=== PATIENT | male | born 1990 | race Native Hawaiian/Other Pacific Islander ===

== ENCOUNTER 2017-03-08 17:15 | Emergency (ER) | payer MEDICAID ==
[2017-03-08] MEDS ORDERED: ATIVAN IM PRN (17:36)
[2017-03-08] MEDS ORDERED: HALDOL IM PRN (17:36)
[2017-03-08] MEDS ORDERED: BENADRYL IM PRN (17:36)
[2017-03-08 18:09] LABS: Basophils # (Auto) 0.1 K/mm3 (0.0-0.1); Eosinophils % (Auto) 0.2 % (0.0-4.3); Hematocrit 45.2 % (35.5-45.6); Hemoglobin 14.9 gm/dl (11.8-15.2); Lymphocytes # (Auto) 1.7 K/mm3 (1.2-5.4); Lymphocytes % (Auto) 20.1 % (13.4-35.0); Mean Corpuscular HGB Conc 33 % (32-34); Mean Corpuscular Hemoglobin 28 pg (28-32); Mean Corpuscular Volume 83 fl (84-94); Monocytes % (Auto) 11.8 % (0.0-7.3); Platelet Count 203 K/mm3 (140-440); Red Blood Count 5.44 M/mm3 (3.65-5.03); Red Cell Distribution Width 15.1 % (13.2-15.2)
--- NOTE | 2017-03-08 18:12 | Emergency Department Report ---
HPI - General Time Seen by Provider: 03/08/17 17:36 - HPI HPI: Room 17 The patient is a 26-year-old male presenting with a chief complaint of aggressive behavior. The patient has a history of schizophrenia, Tourette syndrome and OCD. The patient's father states he sporadically takes his medication. The father states over the past 3-4 months he's had progressively worsening behavior which includes things such as punching holes in the reynoso and breaking glass. The patient's father states the patient spent 3 hours in the shower making screaming noises. The patient denies complaints and only states he feels sleepy Location: Mental state Duration: Worsening Over 3-4 months Quality: Aggressive, destructive Severity: Moderate Modifying factors: [see above] Context: [see above] Mode of transportation: [not driving] ED Past Medical Hx - Past Medical History Hx Psychiatric Treatment: Yes Additional medical history: Tourette's syndrome, schizophrenia, OCD - Surgical History Past Surgical History?: No - Family History Family history: no significant - Social History Smoking Status: Never Smoker Substance Use Type: None ED Review of Systems ROS: Stated complaint: PSYCH EVAL Other details as noted in HPI Comment: Unobtainable due to pts medical conditions Physical Exam - Physical Exam Physical Exam: GENERAL: The patient is well-developed well-nourished male sitting on stretcher eating food. To be in acute distress. [] HEENT: Normocephalic. Atraumatic. Extraocular motions are intact. Patient has moist mucous membranes. NECK: Supple. Trachea midline CHEST/LUNGS: Clear to auscultation. There is no respiratory distress noted. HEART/CARDIOVASCULAR: Regular. There is no tachycardia. There is no gallop rub or murmur. ABDOMEN: Abdomen is soft, nontender. Patient has normal bowel sounds. There is no abdominal distention. SKIN: There is no rash. There is no edema. There is no diaphoresis. NEURO: The patient is awake and alert. The patient is cooperative. The patient has normal speech and gait. MUSCULOSKELETAL:There is no evidence of acute injury. ED Medical Decision Making - Lab Data Result diagrams: 03/08/17 17:57 12 17:57 Laboratory Tests 03/08/17 03/08/17 12 17:57 17:57 17:57 WBC 8.3 RBC 5.44 H Hgb 14.9 Hct 45.2 MCV 83 L MCH 28 MCHC 33 RDW 15.1 Plt Count 203 Lymph % (Auto) 20.1 [place] % (Auto) 11.8 H Eos % (Auto) 0.2 Baso % (Auto) 1.0 Lymph # 1.7 [place] # 1.0 H Eos # 0.0 Baso # 0.1 Seg Neutrophils % 66.9 Seg Neutrophils # 5.6 Sodium 141 Potassium 3.5 L Chloride 98.9 Carbon Dioxide 24 Anion Gap 22 BUN 17 Creatinine 0.6 L Estimated GFR > 60 BUN/Creatinine Ratio 28 Glucose 115 H Calcium 9.8 Plasma/Serum Alcohol < 0.01 - Differential Diagnosis schizophrenia Critical care attestation.: If time is entered above; I have spent that time in minutes in the direct care of this critically ill patient, excluding procedure time. ED Disposition Clinical Impression: Schizophrenia Disposition: DC/TX-65 PSY HOSP/PSY UNIT Is pt being admited?: No Does the pt Need Aspirin: No Condition: Fair Time of Disposition: 18:12 (awaiting acceptance)
[2017-03-08 18:25] LABS: BUN/Creatinine Ratio 28; Blood Urea Nitrogen 17 mg/dL (9-20); Calcium 9.8 mg/dL (8.4-10.2); Hemolysis Index 12
[2017-03-09 08:38] LABS: Bacteria,Urine 1+ /HPF (Negative); Bilirubin,Urine NEG (Negative); Blood,Urine NEG (Negative); Color,Urine Yellow (Yellow); Mucus,Urine 2+ /HPF; Nitrite,Urine NEG (Negative); Protein,Urine <15 mg/dL mg/dL (Negative); Urobilinogen,Urine < 2.0 mg/dL (<2.0)
[2017-03-09 11:37] LABS: Amphetamine Screen,Urine PRESUMPTIVE NEGATIVE; Benzodiazepines Screen,Urine PRESUMPTIVE NEGATIVE; Cannabinoid Screen,Urine PRESUMPTIVE NEGATIVE; Cocaine Screen,Urine PRESUMPTIVE NEGATIVE; Methadone Screen,Urine PRESUMPTIVE NEGATIVE; Opiate Screen,Urine PRESUMPTIVE NEGATIVE
[2017-03-09] MEDS ORDERED: ATIVAN PO PRN (14:48)
[2017-03-09] MEDS ORDERED: ATIVAN ONE (14:51)
--- NOTE | 2017-03-09 16:37 | Consultation ---
History of Present Illness - Reason for Consult Consult date: 03/09/17 Reason for consult: Mental Health Evaluation Requesting physician: CALLI CONNELL - Chief Complaint Chief complaint: "Nothing is wrong with me" - History of Present Psychiatric Illness 26 y.o. male presenting to [facility] for bizarre behavior. Today the patient is calm and cooperative, but disorganized during the assessment. He has a tangential thought process. Patient was looking around during the interview, possible responding to some type of stimuli. He is adamant that he is okay. Per collateral information from his father Mr Reveles, patient has schizophrenia and been hospitalized. He stated that that patient thinks someone or something is always out to get him. He stated that his son takes Abilify, but is noncompliant with his medications. The patient denies SI/HI's and AVH's. He denies sleep disturbance and a poor appetite. He denies recreational drug use and alcohol consumption (etoh). Medications and Allergies Allergies Allergy/AdvReac Type Severity Reaction Status Date / Time No Known Allergies Allergy Unverified 12/02/14 11:52 Active Meds: Active Medications Diphenhydramine HCl (Benadryl) 50 mg IM Q6H PRN PRN Reason: Agitation Last Admin: 03/08/17 17:52 Dose: 50 mg Haloperidol Lactate (Haldol) 10 mg IM Q8H PRN PRN Reason: Agitation Last Admin: 03/08/17 17:53 Dose: 10 mg Lorazepam (Ativan) 2 mg IM Q8H PRN PRN Reason: Agitation Last Admin: 03/08/17 17:52 Dose: 2 mg Lorazepam (Ativan) 1 mg PO Q6HR PRN PRN Reason: Anxiety Last Admin: 03/09/17 14:54 Dose: 1 mg Past psychiatric history - Past Medical History Past Medical History: No medical history Past Surgical History: No surgical history - past Psychiatric treatment and history Psych: Psychosis psychiatric treatment history: Per his father, patient been to [facility]. Denies a fam psy hx. - Social History Social history: lives with family Mental Status Exam - Vital signs Last Vital Signs Temp 97.8 F 03/09/17 14:44 Pulse 105 H 03/09/17 14:44 Resp 18 03/09/17 14:44 BP 120/73 03/09/17 14:44 Pulse Ox 98 03/09/17 14:44 - Exam Narrative exam: MSE: Appearance: calm, cooperative Behavior: regular eye contact Speech: regular rate and tone Mood: "okay" Affect: congruent to mood Thought Process: circumstantial Thought Content: denies SI/HI's and AVH's, paranoid, disorganized Motor Activity: sitting up in bed Cognition: A/O x3 Insight: poor Judgment: poor Results Result Diagrams: 03/08/17 17:57 03/08/17 17:57 Abnormal lab results 03/08/17 03/08/17 Range/Units 17:57 17:57 RBC 5.44 H (3.65-5.03) M/mm3 MCV 83 L (84-94) fl [place] % (Auto) 11.8 H (0.0-7.3) % [place] # 1.0 H (0.0-0.8) K/mm3 Potassium 3.5 L (3.6-5.0) mmol/L Creatinine 0.6 L (0.8-1.5) mg/dL Glucose 115 H (75-100) mg/dL All other labs normal. Assessment and Plan Assessment and plan: Impression: Per collateral information hx of Tourette's Syndrome and OCD. Unspecified Psychosis. Today the patient is calm and cooperative, but disorganized during the assessment. UDS negative. DDx: Schizophrenia Recommendation/Plan: Continue 1013 with placement to inpatient psy services. Start Abilify 10 mg PO daily for psychosis. Discussed with patient possible metabolic side effects of Abilify.
[2017-03-09] MEDS: ABILIFY PO SCH (20:10)
[2017-03-10 09:55] VITALS: BP 128/75
[2017-03-10] MEDS: ABILIFY PO SCH (10:18)
--- NOTE | 2017-03-10 13:03 | Progress Note ---
Subjective - Reason for Consult Consult date: 03/10/17 Reason for consult: Psychiatry Follow-up - Chief Complaint Chief complaint: "I want to go home" 26 y.o. male presenting to [facility] for bizarre behavior. Today the patient is calm and cooperative, but disorganized during the assessment. He stated that he want to go home. During the interview, the patient was responding to some type of stimuli. He is adamant about not wanting to go to a mental health facility. He denies SI/HI's. He denies any side effects of his medication. Mental Status Exam - Vital signs Last Vital Signs Temp 99 F 03/10/17 09:53 Pulse 100 H 03/10/17 09:53 Resp 18 03/10/17 09:55 BP 128/75 03/10/17 09:53 Pulse Ox 100 03/10/17 09:55 - Exam Narrative exam: MSE: Appearance: cooperative Behavior: regular eye contact Speech: regular rate and tone Mood: "agitated" Affect: congruent to mood Thought Process: circumstantial Thought Content: denies SI/HI's and AVH's, paranoid, disorganized Motor Activity: sitting up in bed Cognition: A/O x3 Insight: poor Judgment: poor Assessment and Plan Impression: Per collateral information hx of Tourette's Syndrome and OCD. Unspecified Psychosis. Today the patient is calm and cooperative, but disorganized during the assessment. UDS negative. DDx: Schizophrenia Recommendation/Plan: Continue 1013 with placement to [place] today. Continue Abilify 10 mg PO daily for psychosis. Discussed with patient possible metabolic side effects of Abilify.
== END 2017-03-10 10:27 ==
LOC: EEVIPCON 17:15 → ED 17:15
DX: F20.9 Schizophrenia, unspecified (principal); F95.2 Tourette's disorder
CPT/HCPCS: 36415; 80048; 80307; 81001; 85025; 96372; 99285; G0480; J1200; J1630; J2060; 80320

== ENCOUNTER 2017-11-12 20:03 | Emergency (ER) | payer MEDICAID ==
[2017-11-12 20:46] LABS: Basophils % (Auto) 0.6 % (0.0-1.8); Eosinophils # (Auto) 0.1 K/mm3 (0.0-0.4); Eosinophils % (Auto) 0.8 % (0.0-4.3); Hematocrit 44.1 % (35.5-45.6); Hemoglobin 14.6 gm/dl (11.8-15.2); Lymphocytes # (Auto) 1.6 K/mm3 (1.2-5.4); Lymphocytes % (Auto) 21.6 % (13.4-35.0); Mean Corpuscular HGB Conc 33 % (32-34); Mean Corpuscular Hemoglobin 29 pg (28-32); Mean Corpuscular Volume 87 fl (84-94); Monocytes # (Auto) 0.5 K/mm3 (0.0-0.8); Monocytes % (Auto) 6.2 % (0.0-7.3); Platelet Count 202 K/mm3 (140-440); Red Blood Count 5.09 M/mm3 (3.65-5.03); Red Cell Distribution Width 14.7 % (13.2-15.2)
[2017-11-12 21:00] LABS: BUN/Creatinine Ratio 20; Blood Urea Nitrogen 14 mg/dL (9-20); Calcium 9.5 mg/dL (8.4-10.2); Hemolysis Index 79
[2017-11-12 22:16] LABS: Amphetamine Screen,Urine PRESUMPTIVE NEGATIVE; Benzodiazepines Screen,Urine PRESUMPTIVE NEGATIVE; Cannabinoid Screen,Urine PRESUMPTIVE NEGATIVE; Cocaine Screen,Urine PRESUMPTIVE NEGATIVE; Methadone Screen,Urine PRESUMPTIVE NEGATIVE; Opiate Screen,Urine PRESUMPTIVE NEGATIVE
[2017-11-12 22:20] LABS: Amorphous Crystals,Urine 2+; Bilirubin,Urine NEG (Negative); Blood,Urine NEG (Negative); Color,Urine Yellow (Yellow); Mucus,Urine FEW /HPF; Protein,Urine <15 mg/dL mg/dL (Negative); Urobilinogen,Urine < 2.0 mg/dL (<2.0); WBC,Urine < 1.0 /HPF (0.0-6.0)
[2017-11-13] MEDS ORDERED: ALUM-MAG HYDROX-SIMETH 200-200-20MG/5ML PO PRN (00:36)
[2017-11-13] MEDS ORDERED: MILK OF MAGNESIA PO PRN (00:36)
--- NOTE | 2017-11-13 00:38 | Emergency Department Report ---
HPI - General Chief Complaint: Psych Time Seen by Provider: 11/12/17 23:24 - HPI HPI: The patient is a 27-year-old male who presents for evaluation of mental health. The patient is a comment by parents and reported that the patient has exhibited greater than one week of insomnia, paranoia, anger, aggressiveness. They stated that the patient has some his head into the wall of their home multiple times, putting holes in the reynoso. The patient admits to insomnia. The patient denies fever, headache, unexplained weight loss or weight gain, heat or cold intolerance, skin, hair, or nail changes, neuro deficits, homicidal ideations, or auditory or visual hallucinations. ED Past Medical Hx - Past Medical History Previous Medical History?: Yes Hx Psychiatric Treatment: Yes Additional medical history: Tourette's syndrome, schizophrenia, OCD - Surgical History Past Surgical History?: No - Social History Smoking Status: Never Smoker Substance Use Type: None - Medications Home Medications: Home Medications Medication Instructions Recorded Confirmed Last Taken Type No Known Home Medications [No 11/13/17 11/13/17 Unknown History Reported Home Medications] ED Review of Systems ROS: Stated complaint: MH Other details as noted in HPI Constitutional: denies: fever ENT: denies: throat or neck pain Respiratory: denies: cough, shortness of breath Cardiovascular: denies: chest pain Endocrine: denies unexplained weight loss or gain Gastrointestinal: denies: abdominal pain, nausea Genitourinary: denies: dysuria Musculoskeletal: denies: leg swelling Skin: denies: rash Neurological: denies: headache Hematological/Lymphatic: denies: easy bleeding or easy bruising Psych: reports insomnia and aggressiveness Physical Exam - Physical Exam Vital Signs: Vital Signs 11/12/17 20:25 Temperature 98.5 F Pulse Rate 68 Respiratory 16 Rate Blood Pressure 115/67 O2 Sat by Pulse 100 Oximetry Physical Exam: General: well-nourished, well-developed, no acute distress Head: Normocephalic, atraumatic Eyes: normal sclera ENT: Mucous membranes are pink and moist Neck: trachea midline, neck supple, No neck stiffness, no cervical adenopathy Respiratory: Breath sounds equal bilaterally, no wheezing, rales, or rhonchi Cardio: S1 and S2 present, no murmurs, rubs, gallops, capillary refill is brisk Abdomen: Normoactive bowel sounds, soft abdomen, no rigidity, no guarding or rebound tenderness Musc: No pitting edema Skin: No rash Neuro: no facial drooping, normal speech Psych: Patient is delusional, withdrawn, poor insight, disorganized thoughts, hyperactive ED Course Vital Signs 11/12/17 20:25 Temperature 98.5 F Pulse Rate 68 Respiratory 16 Rate Blood Pressure 115/67 O2 Sat by Pulse 100 Oximetry ED Medical Decision Making - Lab Data Result diagrams: 11/12/17 20:33 11/12/17 20:33 - Medical Decision Making The patient was seen and examined by myself. The patient is placed on a residential monitor and continuous pulse ox. On initial evaluation, the patient was found to be in no distress. Labs are obtained. Lab results are grossly unremarkable. The patient is medically clear. Mental health is consulted. Mental health evaluates the patient and agrees that the patient is exhibiting signs of acute psychosis versus acute bipolar disorder. A 1013 is completed. The patient will be admitted to a psychiatric facility once bed placement is obtained. Critical care attestation.: If time is entered above; I have spent that time in minutes in the direct care of this critically ill patient, excluding procedure time. ED Disposition Clinical Impression: Acute psychosis Schizophrenia Qualifiers: Schizophrenia type: unspecified Qualified Code(s): F20.9 - Schizophrenia, unspecified Disposition: DC-09 OP ADMIT IP TO THIS HOSP Is pt being admited?: Yes Does the pt Need Aspirin: Yes Condition: Fair Referrals: PRIMARY CARE, [Primary Care Provider] - 3-5 Days Time of Disposition: 00:37
[2017-11-13] MEDS ORDERED: HALDOL ONE (01:28)
[2017-11-13] MEDS ORDERED: ATIVAN ONE (01:28)
[2017-11-13] MEDS ORDERED: HALDOL IM ONE (01:34)
[2017-11-13] MEDS ORDERED: ATIVAN IV ONE (01:35)
--- NOTE | 2017-11-13 13:21 | Consultation ---
History of Present Illness - Reason for Consult Consult date: 11/13/17 Reason for consult: Mental Health Evaluation Requesting physician: JUDSON HARRISON - Chief Complaint Chief complaint: "I am okay" - History of Present Psychiatric Illness 27-year-old male who presents for evaluation of mental health. This patient is known to me. Today the patient is cooperative, but disorganized during the assessment. He stated that he came to the hospital to get his urine checked and take care his "fever." Per the record, the patient was never febrile. His conversation was not lucid. The patient had to be redirected several times to keep him on topic. He denies SI/HI's, AVH's, recreational drug use, and alcohol consumption (etoh). Medications and Allergies Allergies Allergy/AdvReac Type Severity Reaction Status Date / Time No Known Allergies Allergy Unverified 12/02/14 11:52 Home Medications Medication Instructions Recorded Confirmed Last Taken Type No Known Home Medications [No 11/13/17 11/13/17 Unknown History Reported Home Medications] Active Meds: Active Medications Acetaminophen (Tylenol) 650 mg PO Q4HR PRN PRN Reason: Pain MILD(1-3)/Fever >100.5/DEAN Al Hydrox/Mg Hydrox/Simethicone (Alum-Mag Hydrox-Simeth [id number]/5ml) 30 ml PO Q4HR PRN PRN Reason: Indigestion Magnesium Hydroxide (Milk Of Magnesia) 30 ml PO Q12HR PRN PRN Reason: Constipation Past psychiatric history - Past Medical History Past Medical History: No medical history Past Surgical History: No surgical history - past Psychiatric treatment and history psychiatric treatment history: The patient confirm Tourettes. He cannot confirm or deny a fam psy hx. - Social History Social history: lives with family Mental Status Exam - Vital signs Last Vital Signs Temp 98.2 F 11/13/17 10:22 Pulse 55 L 11/13/17 10:22 Resp 12 11/13/17 10:22 BP 115/67 11/12/17 20:25 Pulse Ox 99 11/13/17 10:22 - Exam Narrative exam: MSE: Appearance: cooperative Behavior: poor eye contact Speech: regular rate and tone Mood: "anxious" Affect: congruent to mood Thought Process: disorganized Thought Content: denies SI/HI's and AVH's, paranoid, delusional Motor Activity: ambulatory Cognition: A/O x 3 Insight: poor Judgment: poor Results Result Diagrams: 11/12/17 20:33 11/12/17 20:33 Abnormal lab results 11/12/17 11/12/17 11/12/17 Range/Units 20:33 20:33 20:33 RBC (3.65-5.03) M/mm3 Seg Neutrophils % (40.0-70.0) % Creatinine 0.7 L (0.8-1.5) mg/dL Glucose 107 H (75-100) mg/dL Salicylates < 0.3 L (2.8-20.0) mg/dL Acetaminophen < 5.0 L (10.0-30.0) ug/mL 11/12/17 Range/Units 20:33 RBC 5.09 H (3.65-5.03) M/mm3 Seg Neutrophils % 70.8 H (40.0-70.0) % Creatinine (0.8-1.5) mg/dL Glucose (75-100) mg/dL Salicylates (2.8-20.0) mg/dL Acetaminophen (10.0-30.0) ug/mL All other labs normal. Assessment and Plan Assessment and plan: Impression: Unspecified Psychosis. Hx of Tourettes and OCD. Today the patient is cooperative, but disorganized during the assessment. UDS is negative. DDx: Schizophrenia Recommendation/Plan: Continue 1013 with placement to inpatient psy services. Start Abilify 5 mg PO daily for psychosis. Attempted to discuss possible metabolic side effects of Abilify with patient.
[2017-11-13] MEDS: ABILIFY PO SCH (14:44)
[2017-11-14] MEDS: ABILIFY PO SCH (11:58)
--- NOTE | 2017-11-14 17:01 | Progress Note ---
Subjective - Reason for Consult Consult date: 11/14/17 Reason for consult: Psychiatric Follow-up Evaluation - Chief Complaint Chief complaint: " I'm doing fine." Patient is a 27-year-old male who presents for evaluation of mental health. Today the patient is cooperative, but disorganized during the assessment. He continues to believe the reason he came to the hospital is because of a " fever. " Per the record, the patient was never febrile. Patient seen talking to himself in room. The patient had to be redirected several times to keep him on topic. He denies SI/HI's, AVH's, delusions, recreational drug use, and alcohol consumption (etoh). Patient reports medication compliance. He denies any side effects of medications. Mental Status Exam - Vital signs Last Vital Signs Temp 98 F 11/14/17 10:00 Pulse 89 11/14/17 10:00 Resp 18 11/14/17 15:44 BP 132/76 11/14/17 10:00 Pulse Ox 100 11/14/17 15:44 - Exam Narrative exam: Mental Status Exam General Appearance: Causally Dressed-hospital gown Eye Contact: Intermittent Orientation: Alert and oriented x 4 (person, place, time, and situation) Attitude/Behavior: Uncooperative Sensorium: Distracted Psychomotor & Musculoskeletal Activity: Sitting up in bed Mood: " A little anxious" Affect: Constricted Speech/Language: Delayed, stuttering Thought Processes: Disorganized, circumstantial, loose associations " I got a taser" Thought Content: Impoverished, paranoid Perception: Patient denies A/V/ T hallucinations. Patient seen talking to self in room. Concentration/Attention: Impaired Suicidal Ideations/Plan: Patient denies. Homicidal Ideations/Plan: Patient denies. Judgment: Poor Insight: Poor Assessment and Plan Assessment and plan: Impression: Unspecified Psychosis. Hx of Tourettes and OCD. Today the patient is cooperative, but disorganized during the assessment. UDS is negative. DDx: Schizophrenia Recommendation/Plan: 1. Continue 1013 with placement to inpatient psychiatric services. 2. Increase Abilify 10 mg PO daily for psychosis. Attempted to discuss possible metabolic side effects of Abilify with patient. Start Vistaril 50mg po TID PRN for anxiety. Attempted to discuss the possible anti-cholinergic side effects. 3. Will continue to monitor mood, psychosis, anxiety, sleep, appetite, compliance, and side effects.
[2017-11-14] MEDS: TYLENOL PO PRN (22:33)
[2017-11-15] MEDS ORDERED: MOTRIN PO ONE (04:45)
[2017-11-15] MEDS: ABILIFY PO SCH ×2 (08:30→09:30)
[2017-11-15] MEDS: TYLENOL PO PRN (15:06)
--- NOTE | 2017-11-15 16:10 | Progress Note ---
Subjective - Reason for Consult Consult date: 11/15/17 Reason for consult: psychiatric follow up - Chief Complaint Chief complaint: " I'm waiting." Patient is a 27-year-old male who presents for evaluation of mental health. Today the patient is cooperative, but disorganized during the assessment. He continues to state the reason he came to the hospital is because of a " fever." He then states if it was an infection, "it should be over by now." He asked about abilify and what it means to be schizophrenic. Psychoeducation was provided in regard to the meaning of schizophrenia and purpose of abilify. He states he is not schizophrenic. He denies SI/HI or AVH. He refused abilify today. Mental Status Exam - Vital signs Last Vital Signs Temp 98.7 F 11/15/17 09:23 Pulse 60 11/15/17 09:23 Resp 18 11/15/17 09:23 BP 128/81 11/15/17 09:23 Pulse Ox 99 11/15/17 09:23 - Exam Orientation: time, place, person Affect: other (constricted) Mood: anxious Thought content: somatic (possible somatic delusion) Thought Process: Disorganized Perceptions: none (reportedly was seen talking to himself) Speech: normal rate and pattern Concentration: distractible Motor activity: normal Level of consciousness: alert Memory: Intact Sleep Symptoms: Restless Interaction: cooperative Assessment and Plan Impression: Unspecified Psychosis. Hx of Tourettes and OCD. Today the patient is cooperative, but disorganized during the assessment. UDS is negative. DDx: Schizophrenia Recommendation/Plan: Continue 1013 with placement to inpatient psychiatric services. Encouraged to take abilify 10mg daily for disorganized thought process.
--- NOTE | 2017-11-15 21:22 | XRay Report ---
FINAL REPORT EXAM: XR RIBS UNI W PA CHEST 3+V RT HISTORY: right rib pain TECHNIQUE: PA view of the chest and multiple views right ribs Comparison: None FINDINGS: There is no evidence of infiltrate, pneumothorax or pleural fluid collection. The cardiomediastinal silhouette is normal in appearance. The bony structures are unremarkable. There is no evidence of a right rib fracture. IMPRESSION: 1. No evidence of an acute pulmonary process. 2. No evidence of a right rib fracture.
--- NOTE | 2017-11-16 11:04 | Progress Note ---
Subjective - Reason for Consult Consult date: 11/16/17 Reason for consult: Psychiatry Follow-up - Chief Complaint Chief complaint: " I'm waiting." Patient is a 27-year-old male who presents for evaluation of mental health. Today the patient is calm and cooperative, but still disorganized during the assessment. He stated that his "fever and infections" has gotten better ( delusional). He stated not seeing his psychiatrist in a "long time." He denies having a mental illness. He had to be redirected several times to keep him on topic. He denies SI/HI's and AVH's. He denies any side effects of his medication. Mental Status Exam - Vital signs Last Vital Signs Temp 98.7 F 11/15/17 20:00 Pulse 87 11/15/17 20:00 Resp 17 11/15/17 20:00 BP 120/85 11/15/17 20:00 Pulse Ox 99 11/15/17 20:00 - Exam Narrative exam: MSE: Appearance: calm, cooperative Behavior: poor eye contact Speech: regular rate and tone Mood: "fine" Affect: congruent to mood Thought Process: disorganized Thought Content: denies SI/HI's and AVH's, delusional Motor Activity: ambulatory Cognition: A/O x 3 Insight: poor Judgment: poor Assessment and Plan Impression: Unspecified Psychosis. Hx of Tourettes and OCD. Today the patient is calm and cooperative, but still disorganized during the assessment. UDS is negative. DDx: Schizophrenia Recommendation/Plan: Continue 1013 with placement to inpatient psy services. Continue Abilify 10 mg PO daily for psychosis. Attempted to discuss possible metabolic side effects of Abilify with patient.
[2017-11-16] MEDS: ABILIFY PO SCH (11:22)
[2017-11-16] MEDS: TYLENOL PO PRN (16:05)
[2017-11-16 20:30] VITALS: BP 123/83
--- NOTE | 2017-11-18 14:26 | Progress Note ---
Subjective - Reason for Consult Consult date: 11/18/17 Reason for consult: Psychiatric Follow-up Evaluation - Chief Complaint Chief complaint: " " Patient is a 27-year-old male who presents for evaluation of mental health. Today the patient is calm and cooperative, but still disorganized during the assessment. He stated that his "fever and infections" has gotten better ( delusional). He stated not seeing his psychiatrist in a "long time." He denies having a mental illness. He had to be redirected several times to keep him on topic. He denies SI/HI's and AVH's. He denies any side effects of his medication. Mental Status Exam - Vital signs Last Vital Signs Temp 98.3 F 11/16/17 20:29 Pulse 62 11/16/17 20:29 Resp 20 11/16/17 20:29 BP 123/83 11/16/17 20:29 Pulse Ox 99 11/16/17 20:29 - Exam Narrative exam: Mental Status Exam General Appearance: Causally Dressed-hospital gown, dishelved, in restraints Eye Contact: Poor Orientation: Alert and oriented to person. Unable to assess orientation. Attitude/Behavior: Uncooperative, agitated Sensorium: Distracted Psychomotor & Musculoskeletal Activity: Laying in bed Mood: "Awful." Labile, anxious, agitated Affect: Incongruent Speech/Language: Loud Thought Processes: Disorganized Thought Content: Impoverished Perception: + Auditory hallucinations, responding to internal stimuli (laughing/ talking inapp.) Concentration/Attention: Impaired Suicidal Ideations/Plan: Patient denies. Homicidal Ideations/Plan: Patient denies. Judgment: Poor Insight: Poor Assessment and Plan Impression: Unspecified Psychosis. Hx of Tourettes and OCD. Today the patient is calm and cooperative, but still disorganized during the assessment. UDS is negative. DDx: Schizophrenia Recommendation/Plan: 1. Continue 1013 with placement to inpatient psy services. 2. Continue Abilify 10 mg PO daily for psychosis. Attempted to discuss possible metabolic side effects of Abilify with patient. 3. Will continue to monitor psychosis, mood, sleep, appetite, compliance, and side effects.
== END 2017-11-17 04:00 | disposition admitted as inpatient to this hospital (09) ==
LOC: ED 20:03
DX: F20.9 Schizophrenia, unspecified (principal); F23 Brief psychotic disorder; F42.9 Obsessive-compulsive disorder, unspecified; F95.2 Tourette's disorder; G47.00 Insomnia, unspecified
CPT/HCPCS: 36415; 71101; 80048; 80307; 81001; 85025; 96372; 96374; 99285; G0480; J1630; J2060; 80320

== ENCOUNTER 2018-07-24 10:06 | Emergency (ER) | payer MEDICAID ==
--- NOTE | 2018-07-24 10:44 | Emergency Department Report ---
ED General Adult HPI - General Chief complaint: Anxiety Stated complaint: NOT FEELING RIGHT Time Seen by Provider: 07/24/18 10:15 Source: patient, EMS Mode of arrival: Stretcher Limitations: No Limitations - History of Present Illness Initial comments: Patient is a poor historian. He arrived in the emergency room saying that he wants to be transferred to a psychiatric facility because the Risperdal which he was prescribed for his schizophrenia is making his Tourette syndrome worse. Patient has a primary care provider and also he said Dr. Sheldon at [facility] put him on Risperdal. He denies any suicidal or homicidal ideation. Patient is not psychotic at this time. I told him to stop taking the Risperdal if he thinks the medication makes his Tourette syndrome worse and to contact the doctor who put him on Risperdal to change it to another medication. I also encouraged him to go to the emergency room if he starts getting psychotic, suicidal or homicidal. Patient also complained of chronic lower back pain which has worsened recently. He denies any trauma/injury or fall. -: Gradual Consistency: intermittent Treatments Prior to Arrival: none - Related Data Home Medications Medication Instructions Recorded Confirmed Last Taken No Known Home Medications [No 11/13/17 11/13/17 Unknown Reported Home Medications] Allergies Allergy/AdvReac Type Severity Reaction Status Date / Time No Known Allergies Allergy Unverified 12/02/14 11:52 ED Review of Systems ROS: Stated complaint: NOT FEELING RIGHT Other details as noted in HPI Comment: All other systems reviewed and negative Constitutional: denies: chills, fever Eyes: denies: eye pain, eye discharge, vision change ENT: denies: ear pain, throat pain Respiratory: denies: cough, shortness of breath, wheezing Cardiovascular: denies: chest pain, palpitations Endocrine: no symptoms reported Gastrointestinal: denies: abdominal pain, nausea, diarrhea Genitourinary: denies: urgency, dysuria Musculoskeletal: back pain. denies: joint swelling, arthralgia Skin: denies: rash, lesions Neurological: denies: headache, weakness, paresthesias Psychiatric: denies: anxiety, depression Hematological/Lymphatic: denies: easy bleeding, easy bruising ED Past Medical Hx - Past Medical History Hx Psychiatric Treatment: Yes Additional medical history: Tourette's syndrome, schizophrenia, OCD - Social History Smoking Status: Never Smoker - Medications Home Medications: Home Medications Medication Instructions Recorded Confirmed Last Taken Type No Known Home Medications [No 11/13/17 11/13/17 Unknown History Reported Home Medications] ED Physical Exam - General Limitations: No Limitations General appearance: alert, in no apparent distress - Head Head exam: Present: atraumatic, normocephalic - Eye Eye exam: Present: normal appearance, PERRL Pupils: Present: normal accommodation - ENT ENT exam: Present: mucous membranes moist - Neck Neck exam: Present: normal inspection - Respiratory Respiratory exam: Present: normal lung sounds bilaterally. Absent: respiratory distress - Cardiovascular Cardiovascular Exam: Present: regular rate, normal rhythm. Absent: systolic murmur, diastolic murmur, rubs, gallop - GI/Abdominal GI/Abdominal exam: Present: soft, normal bowel sounds - Rectal Rectal exam: Present: deferred - Extremities Exam Extremities exam: Present: normal inspection - Back Exam Back exam: Present: normal inspection - Neurological Exam Neurological exam: Present: alert, oriented X3 - Psychiatric Psychiatric exam: Present: normal affect, normal mood - Skin Skin exam: Present: warm, dry, intact, normal color. Absent: rash ED Course Vital Signs 07/24/18 07/24/18 10:27 10:30 Temperature 98.3 F Pulse Rate 74 Respiratory 20 Rate Blood Pressure 112/67 O2 Sat by Pulse 99 Oximetry - Consultations Consultation #1: 07/24/18 12:47 Patient was seen by the mental health worker Ms. Dunne in the ED. She said the patient does not make criteria for inpatient psychiatric admission at this time. She recommend outpatient follow-up with the patient's psychiatric is Dr. Matos. Patient was given resources on how to follow up as an outpatient with the psychiatrist. Consultation #2: 07/24/18 12:49 Patient was also seen in the ED by the director of social services Ms. Kramer who recomme nded the patient come back on Thursday morning to see another director of social services to determine the best facility for the patient be placed. ED Medical Decision Making - Lab Data Result diagrams: 07/24/18 10:54 07/24/18 10:54 Lab Results 07/24/18 07/24/18 07/24/18 Range/Units 10:54 10:54 10:54 WBC 8.6 (4.5-11.0) K/mm3 RBC 4.72 (3.65-5.03) M/mm3 Hgb 13.5 (11.8-15.2) gm/dl Hct 40.7 (35.5-45.6) % MCV 86 (84-94) fl MCH 29 (28-32) pg MCHC 33 (32-34) % RDW 14.8 (13.2-15.2) % Plt Count 156 (140-440) K/mm3 Lymph % (Auto) 9.4 L (13.4-35.0) % [place] % (Auto) 7.5 H (0.0-7.3) % Eos % (Auto) 0.5 (0.0-4.3) % Baso % (Auto) 0.6 (0.0-1.8) % Lymph # 0.8 L (1.2-5.4) K/mm3 [place] # 0.6 (0.0-0.8) K/mm3 Eos # 0.0 (0.0-0.4) K/mm3 Baso # 0.0 (0.0-0.1) K/mm3 Seg Neutrophils % 82.0 H (40.0-70.0) % Seg Neutrophils # 7.0 (1.8-7.7) K/mm3 Sodium 141 (137-145) mmol/L Potassium 3.6 (3.6-5.0) mmol/L Chloride 101.6 (98-107) mmol/L Carbon Dioxide 26 (22-30) mmol/L Anion Gap 17 mmol/L BUN 16 (9-20) mg/dL Creatinine 0.8 (0.8-1.5) mg/dL Estimated GFR > 60 ml/min BUN/Creatinine Ratio 20 % Glucose 97 (75-100) mg/dL Calcium 9.5 (8.4-10.2) mg/dL Total Bilirubin 1.00 (0.1-1.2) mg/dL AST 16 (5-40) units/L ALT 16 (7-56) units/L Alkaline Phosphatase 88 (35-129) units/L Total Protein 7.0 (6.3-8.2) g/dL Albumin 4.3 (3.9-5) g/dL Albumin/Globulin Ratio 1.6 % Urine Color (Yellow) Urine Turbidity (Clear) Urine pH (5.0-7.0) Ur Specific Sikes (1.003-1.030) Urine Protein (Negative) mg/dL Urine Glucose (UA) (Negative) mg/dL Urine Ketones (Negative) mg/dL Urine Blood (Negative) Urine Nitrite (Negative) Urine Bilirubin (Negative) Urine Urobilinogen (<2.0) mg/dL Ur Leukocyte Esterase (Negative) Urine WBC (Auto) (0.0-6.0) /HPF Urine RBC (Auto) (0.0-6.0) /HPF U Epithel Cells (Auto) (0-13.0) /HPF Amorphous Crystals Urine Mucus /HPF Salicylates (2.8-20.0) mg/dL Urine Opiates Screen Urine Methadone Screen Acetaminophen < 5.0 L (10.0-30.0) ug/mL Ur Barbiturates Screen Ur Phencyclidine Scrn Ur Amphetamines Screen U Benzodiazepines Scrn Urine Cocaine Screen U Marijuana (THC) Screen Drugs of Abuse Note Plasma/Serum Alcohol (0-0.07) % 07/24/18 07/24/18 07/24/18 Range/Units 10:54 12:04 12:09 WBC (4.5-11.0) K/mm3 RBC (3.65-5.03) M/mm3 Hgb (11.8-15.2) gm/dl Hct (35.5-45.6) % MCV (84-94) fl MCH (28-32) pg MCHC (32-34) % RDW (13.2-15.2) % Plt Count (140-440) K/mm3 Lymph % (Auto) (13.4-35.0) % [place] % (Auto) (0.0-7.3) % Eos % (Auto) (0.0-4.3) % Baso % (Auto) (0.0-1.8) % Lymph # (1.2-5.4) K/mm3 [place] # (0.0-0.8) K/mm3 Eos # (0.0-0.4) K/mm3 Baso # (0.0-0.1) K/mm3 Seg Neutrophils % (40.0-70.0) % Seg Neutrophils # (1.8-7.7) K/mm3 Sodium (137-145) mmol/L Potassium (3.6-5.0) mmol/L Chloride (98-107) mmol/L Carbon Dioxide (22-30) mmol/L Anion Gap mmol/L BUN (9-20) mg/dL Creatinine (0.8-1.5) mg/dL Estimated GFR ml/min BUN/Creatinine Ratio % Glucose (75-100) mg/dL Calcium (8.4-10.2) mg/dL Total Bilirubin (0.1-1.2) mg/dL AST (5-40) units/L ALT (7-56) units/L Alkaline Phosphatase (35-129) units/L Total Protein (6.3-8.2) g/dL Albumin (3.9-5) g/dL Albumin/Globulin Ratio % Urine Color Yellow (Yellow) Urine Turbidity Slightly-cloudy (Clear) Urine pH 6.0 (5.0-7.0) Ur Specific Sikes 1.017 (1.003-1.030) Urine Protein <15 mg/dl (Negative) mg/dL Urine Glucose (UA) Neg (Negative) mg/dL Urine Ketones Tr (Negative) mg/dL Urine Blood Neg (Negative) Urine Nitrite Neg (Negative) Urine Bilirubin Neg (Negative) Urine Urobilinogen < 2.0 (<2.0) mg/dL Ur Leukocyte Esterase Neg (Negative) Urine WBC (Auto) 2.0 (0.0-6.0) /HPF Urine RBC (Auto) 1.0 (0.0-6.0) /HPF U Epithel Cells (Auto) < 1.0 (0-13.0) /HPF Amorphous Crystals Few Urine Mucus Few /HPF Salicylates < 0.3 L (2.8-20.0) mg/dL Urine Opiates Screen Urine Methadone Screen Acetaminophen (10.0-30.0) ug/mL Ur Barbiturates Screen Ur Phencyclidine Scrn Ur Amphetamines Screen U Benzodiazepines Scrn Urine Cocaine Screen U Marijuana (THC) Screen Drugs of Abuse Note Plasma/Serum Alcohol < 0.01 (0-0.07) % 07/24/18 Range/Units 12:09 WBC (4.5-11.0) K/mm3 RBC (3.65-5.03) M/mm3 Hgb (11.8-15.2) gm/dl Hct (35.5-45.6) % MCV (84-94) fl MCH (28-32) pg MCHC (32-34) % RDW (13.2-15.2) % Plt Count (140-440) K/mm3 Lymph % (Auto) (13.4-35.0) % [place] % (Auto) (0.0-7.3) % Eos % (Auto) (0.0-4.3) % Baso % (Auto) (0.0-1.8) % Lymph # (1.2-5.4) K/mm3 [place] # (0.0-0.8) K/mm3 Eos # (0.0-0.4) K/mm3 Baso # (0.0-0.1) K/mm3 Seg Neutrophils % (40.0-70.0) % Seg Neutrophils # (1.8-7.7) K/mm3 Sodium (137-145) mmol/L Potassium (3.6-5.0) mmol/L Chloride (98-107) mmol/L Carbon Dioxide (22-30) mmol/L Anion Gap mmol/L BUN (9-20) mg/dL Creatinine (0.8-1.5) mg/dL Estimated GFR ml/min BUN/Creatinine Ratio % Glucose (75-100) mg/dL Calcium (8.4-10.2) mg/dL Total Bilirubin (0.1-1.2) mg/dL AST (5-40) units/L ALT (7-56) units/L Alkaline Phosphatase (35-129) units/L Total Protein (6.3-8.2) g/dL Albumin (3.9-5) g/dL Albumin/Globulin Ratio % Urine Color (Yellow) Urine Turbidity (Clear) Urine pH (5.0-7.0) Ur Specific Sikes (1.003-1.030) Urine Protein (Negative) mg/dL Urine Glucose (UA) (Negative) mg/dL Urine Ketones (Negative) mg/dL Urine Blood (Negative) Urine Nitrite (Negative) Urine Bilirubin (Negative) Urine Urobilinogen (<2.0) mg/dL Ur Leukocyte Esterase (Negative) Urine WBC (Auto) (0.0-6.0) /HPF Urine RBC (Auto) (0.0-6.0) /HPF U Epithel Cells (Auto) (0-13.0) /HPF Amorphous Crystals Urine Mucus /HPF Salicylates (2.8-20.0) mg/dL Urine Opiates Screen Presumptive negative Urine Methadone Screen Presumptive negative Acetaminophen (10.0-30.0) ug/mL Ur Barbiturates Screen Presumptive negative Ur Phencyclidine Scrn Presumptive negative Ur Amphetamines Screen Presumptive negative U Benzodiazepines Scrn Presumptive negative Urine Cocaine Screen Presumptive negative U Marijuana (THC) Screen Presumptive negative Drugs of Abuse Note Disclamer Plasma/Serum Alcohol (0-0.07) % - Radiology Data Radiology results: report reviewed Lumbar x-rays shows no fracture or dislocation. - Medical Decision Making History of schizophrenia and Tourette syndrome. Patient is medically stable currently to be discharged home with outpatient psychiatric follow-up. Patient was also advised to come back on Thursday to see the director of social services. Critical care attestation.: If time is entered above; I have spent that time in minutes in the direct care of this critically ill patient, excluding procedure time. ED Disposition Clinical Impression: History of schizophrenia, History of Jt de la Tourette's syndrome Lower back pain Qualifiers: Chronicity: chronic Back pain laterality: unspecified Sciatica presence: without sciatica Qualified Code(s): M54.5 - Low back pain Disposition: DC-01 TO HOME OR SELFCARE Is pt being admited?: No Does the pt Need Aspirin: No Condition: Stable Instructions: Schizophrenia (ED) Additional Instructions: Please return to the emergency room on Thursday at 9 AM to see the director of social services regarding placement. Please follow up with his psychiatrist Dr. Carlo Lowery Thursday. Stop taking Risperdal if that Medication makes your Tourette syndrome worse. Return to the emergency room if he started then and is suicidal or homicidal thoughts off or any other medical concerns. Referrals: PRIMARY CARE, [Primary Care Provider] - 3-5 Days Time of Disposition: 12:57
[2018-07-24 10:51] VITALS: BP 112/67
[2018-07-24 11:09] LABS: Basophils % (Auto) 0.6 % (0.0-1.8); Eosinophils % (Auto) 0.5 % (0.0-4.3); Hematocrit 40.7 % (35.5-45.6); Hemoglobin 13.5 gm/dl (11.8-15.2); Lymphocytes # (Auto) 0.8 K/mm3 (1.2-5.4); Lymphocytes % (Auto) 9.4 % (13.4-35.0); Mean Corpuscular HGB Conc 33 % (32-34); Mean Corpuscular Volume 86 fl (84-94); Monocytes # (Auto) 0.6 K/mm3 (0.0-0.8); Monocytes % (Auto) 7.5 % (0.0-7.3); Platelet Count 156 K/mm3 (140-440); Red Blood Count 4.72 M/mm3 (3.65-5.03); Red Cell Distribution Width 14.8 % (13.2-15.2)
[2018-07-24 11:27] LABS: Alanine Aminotransferase 16 units/L (7-56); Albumin 4.3 g/dL (3.9-5); BUN/Creatinine Ratio 20; Blood Urea Nitrogen 16 mg/dL (9-20); Calcium 9.5 mg/dL (8.4-10.2); Hemolysis Index 15
--- NOTE | 2018-07-24 11:30 | XRay Report ---
PROCEDURE: XR SPINE LUMBOSACRAL 2-3V TECHNIQUE: Lumbar radiograph, 3 views. HISTORY: lower back pain COMPARISONS: Lumbar spine x-ray March 20, 2015. FINDINGS: Straightening of the normal lordotic alignment. Vertebral body heights are uniform. No fracture. Mild disc space narrowing at L5-S1 with minimal grade 1 posterior subluxation. Otherwise disc spaces are intact. Prevertebral soft tissues are unremarkable. Posterior arthropathy at L5-S1. Mild dextrocurvature or scoliosis. No suspicious osseous lesions. No vertebral anomalies. SI joints are unremarkable. IMPRESSION: * Nonspecific straightening of the normal lordotic alignment. * Mild dextrocurvature or scoliosis. * Mild discogenic disease at L5-S1 with arthropathy. * No fracture.. This document is electronically signed by Jatin Anderson MD., Jul 24 2018 11:28:04 AM ET
[2018-07-24 12:28] LABS: Amorphous Crystals,Urine Few; Bilirubin,Urine NEG (Negative); Blood,Urine NEG (Negative); Color,Urine Yellow (Yellow); Mucus,Urine FEW /HPF; Protein,Urine <15 mg/dL mg/dL (Negative); Urobilinogen,Urine < 2.0 mg/dL (<2.0)
[2018-07-24 12:33] LABS: Amphetamine Screen,Urine PRESUMPTIVE NEGATIVE; Benzodiazepines Screen,Urine PRESUMPTIVE NEGATIVE; Cannabinoid Screen,Urine PRESUMPTIVE NEGATIVE; Cocaine Screen,Urine PRESUMPTIVE NEGATIVE; Methadone Screen,Urine PRESUMPTIVE NEGATIVE; Opiate Screen,Urine PRESUMPTIVE NEGATIVE
== END 2018-07-24 13:05 | disposition home or self-care (01) ==
LOC: ED 10:06
DX: F20.9 Schizophrenia, unspecified (principal); M54.5 Low back pain; F95.2 Tourette's disorder
CPT/HCPCS: 36415; 72100; 80053; 80307; 81001; 85025; 99284; G0480; 80320

== ENCOUNTER 2018-09-30 14:38 | Outpatient (CLI) | payer MEDICAID | END 2018-09-30 14:39 | disposition home or self-care (01) | LOC: LAB 14:38 | PROVIDERS: ATTEND Internal Medicine | DX: R19.7 Diarrhea, unspecified (principal) | CPT/HCPCS: 36415; 82705; 85007; 87177 ==

== ENCOUNTER 2020-03-22 06:50 | Day surgery (SDC) | payer MEDICAID ==
[~2020-03-22 06:50] MED LIST: BACTERIOSTATIC SODIUM CHLORIDE 0.9% 30 ML VIAL INFILTRATI ONE
[2020-03-22] MEDS ORDERED: BUPIVACAINE/PF (0.25%) 2.5 MG/ML 30 ML VIAL INFILTRATI ONE ×2 (07:03→08:05)
[2020-03-22] MEDS ORDERED: LIDOCAINE (1%) 10 MG/1 ML VIAL 20 ML MDV ONE (07:03)
--- NOTE | 2020-03-22 07:15 | Anesthesia Day of Surgery ---
Anesthesia Day of Surgery - Day of Surgery Patient Examined: Yes Patient H&P Reviewed: Yes Patient is NPO: Yes
--- NOTE | 2020-03-22 07:16 | Anesthesia Consultation ---
Anesthesia Consult and Med Hx Date of service: 03/22/20 - Airway Anesthetic Teeth Evaluation: Good ROM Head & Neck: Adequate Mental/Hyoid Distance: Adequate Mallampati Class: Class II Intubation Access Assessment: Good - Pre-Operative Health Status ASA Pre-Surgery Classification: ASA2 Proposed Anesthetic Plan: MAC - Pulmonary Hx Smoking: No Hx Sleep Apnea: No (KELLY PRE SCREEN LOW RISK) - Cardiovascular System Hx Hypertension: No - Central Nervous System Hx Back Pain: Yes Hx Psychiatric Problems: Yes (HX ACUTE PSYCHOSIS, TOURETTE'S SYNDROME, SCHIZOPHRENIA) - Other Systems Hx Cancer: No
[2020-03-22] MEDS ORDERED: LIDOCAINE MPF (2%) 20 MG/1 ML VIAL 5 ML ONE (07:23)
[2020-03-22] MEDS ORDERED: propofoL 200 MG/20 ML VIAL IV ONE (07:24)
[2020-03-22] MEDS ORDERED: fentaNYL 100 MCG/2 ML INJ ONE (07:24)
[2020-03-22] MEDS ORDERED: KETAMINE/STERILE WATER 50 MG/ML SYRINGE ONE (07:25)
[2020-03-22] MEDS ORDERED: MIDAZOLAM 2 MG/2 ML INJ IV SCH (08:00)
[2020-03-22] MEDS ORDERED: ONDANSETRON 4 MG/2 ML INJ IV PRN (08:00)
[2020-03-22] MEDS ORDERED: LACTATED RINGERS 1,000 ML IV SCH (08:00)
[2020-03-22] MEDS ORDERED: HYDROmorphone 1 MG/1 ML INJ IV PRN ×2 (08:00)
[2020-03-22] MEDS ORDERED: LIDOCAINE (1%) 10 MG/1 ML VIAL 20 ML MDV INFILTRATI ONE (08:04)
[2020-03-22] MEDS ORDERED: SODIUM CHLORIDE 0.9% IRR 1,500 ML BOTTLE IR ONE (08:06)
[2020-03-22] MEDS ORDERED: ONDANSETRON 4 MG/2 ML INJ ONE (08:34)
--- NOTE | 2020-03-22 08:41 | Short Stay Summary ---
Short Stay Documentation Date of service: 03/22/20 - History Principal diagnosis: soft tissue mass of face H&P: obtained from office - Allergies and Medications Current Medications: Allergies Penicillins Adverse Reaction (Verified 03/13/20 18:07) Rash Home Medications Medication Instructions Recorded Confirmed Last Taken Type Clomipramine HCl [Anafranil] 50 mg PO QHS 03/13/20 03/13/20 03/21/20 History Fluvoxamine Maleate 200 mg PO BID 03/13/20 03/13/20 03/21/20 History Paliperidone Palmitate [Invega 234 mg IM Q4W 03/13/20 03/13/20 Unknown History Sustenna] diphenhydrAMINE [Benadryl CAP] 50 mg PO QHS 03/13/20 03/13/20 03/21/20 History Active Medications Hydromorphone HCl (Hydromorphone 1 Mg/1 Ml Inj) 0.25 mg IV Q10MIN PRN PRN Reason: Pain, Moderate (4-6) Stop: 03/22/20 17:00 Hydromorphone HCl (Hydromorphone 1 Mg/1 Ml Inj) 0.5 mg IV Q10MIN PRN PRN Reason: Pain , Severe (7-10) Stop: 03/22/20 17:00 Lactated Ringer's (Lactated Ringers) 1,000 mls @ 100 mls/hr IV DIRECT GILLES Last Admin: 03/22/20 07:17 Dose: 100 mls/hr Documented by: Midazolam HCl (Midazolam 2 Mg/2 Ml Inj) 2 mg IV ONCE GILLES Stop: 03/22/20 21:00 Last Admin: 03/22/20 07:17 Dose: 2 mg Documented by: Ondansetron HCl (Ondansetron 4 Mg/2 Ml Inj) 4 mg IV ONCE PRN PRN Reason: Nausea And Vomiting Stop: 03/22/20 17:00 - Brief post op/procedure progress note Date of procedure: 03/22/20 Pre-op diagnosis: soft tissue mass left face Post-op diagnosis: other (cyst of left face) Procedure: excision cyst of face Anesthesia: MAC, local Findings: 4 cm cyst of left side of face Surgeon: BELÉN PHILLIP Estimated blood loss: minimal Pathology: list (cyst of face) Specimen disposition: to lab Condition: stable - Hospital course Hospital course: Pt observed in PACU and discharged to home in stable condition when criteria met - Disposition Condition at discharge: Good Disposition: DC-01 TO HOME OR SELFCARE Short Stay Discharge Plan Activity: no restrictions Diet: regular Wound: per your surgeon's advice (May remove gauze and tape dressing in 2 days) Additional Instructions: see additional printed discharge instructions Follow up with: JUANCARLOS GALINDO MD [Primary Care Provider] - 7 Days BELÉN PHILLIP DO [Staff Physician] - 14 Days Prescriptions: traMADoL [Ultram 50 MG tab] 25 mg PO Q6HR PRN #10 tablet PRN Reason: Pain , Severe (7-10)
[2020-03-22 09:32] VITALS: BP 108/64
--- NOTE | 2020-03-22 09:32 | Post Anesthesia Evaluation ---
- Post Anesthesia Evaluation Patient Participated: Yes Airway Patent: Yes Stable Respiratory Function: Yes Nausea/Vomiting: No Temp > 96.8F: Yes Pain Manageable: Yes Adequeate Hydration: Yes Anesthesia Complications: No Block Receding Appropriately: Not Applicable Patient on Ventilator: No
--- NOTE | 2020-03-22 11:16 | Operative Report ---
Operative Report Operative Report: Date of procedure: 03/22/20 Pre-op diagnosis: soft tissue mass left face Post-op diagnosis: other (cyst of left face) Procedure: excision cyst of face Anesthesia: MAC, local Findings: 4 cm cyst of left side of face Surgeon: BELÉN PHILLIP Estimated blood loss: minimal Pathology: list (cyst of face) Specimen disposition: to lab Condition: stable Hospital course: Pt observed in PACU and discharged to home in stable condition when criteria met HPI and indication: Patient is a 30-year-old male with a history of OCD who presented to the surgery clinic for evaluation of a left facial mass. The mass had grown significantly in size over a short period of time and was bothersome. It was recommended that the mass be removed. All risk, benefits, terms of surgery discussed with the patient and his father at the bedside. Consent was obtained. Procedure in detail: Patient was identified in the preoperative area, taken back to the operating room, placed on the operating room table in supine position. A fter anesthesia was induced, left facial area was prepped and draped in usual sterile fashion. Local anesthetic was injected into the skin at the intended incision site. A transverse incision was made in the skin overlying the mass. There was immediate drainage of semisolid white material. This mass appeared to be a cyst. The cyst wall was thin and adhered to the skin. Using a combination of blunt dissection with a hemostat and sharp dissection with iris scissors, the cyst wall was carefully dissected away from the surrounding tissue circumferentially. Once normal fatty tissue was identified the cyst wall in its entirety was removed from the subcutaneous tissue using Bovie electrocautery. This was then passed off the table as a specimen. The wound was then irrigated and hemostasis achieved with electrocautery. The cyst measured approximately 4cm. Once hemostasis was ensured, the deep dermal layer was closed using interrupted 4-0 Vicryl sutures. The skin was closed with running 4-0 Monocryl subcuticular stitch and skin glue. After the skin wound was dry, a 2x2 gauze and tegaderm was applied. At the end of the case, all sponge, instrument, sharp counts were correct 2. The patient was awoken from anesthesia and taken to PACU in stable condition.
== END 2020-03-22 06:51 | disposition home or self-care (01) ==
LOC: OR 06:50
PROVIDERS: ATTEND Surgery
DX: R22.0 Localized swelling, mass and lump, head (principal); Z20.828 Contact with and (suspected) exposure to other viral communicable diseases; L72.11 Pilar cyst; Z88.0 Allergy status to penicillin; Z79.899 Other long term (current) drug therapy; Z98.890 Other specified postprocedural states
CPT/HCPCS: 11444; 12052; 88304; J1170; J2250; J2405; J2704; J3490; J7120; U0003; J3010

== ENCOUNTER 2020-07-24 20:03 | Emergency (ER) | payer MEDICAID ==
[2020-07-24 22:24] VITALS: BP 140/79
[2020-07-24] MEDS ORDERED: TETANUS,DIPH,PERTUSS(ACELL) VACCINE 0.5 ML SYRINGE IM ONE (22:52)
[2020-07-24] MEDS ORDERED: traMADol 50 MG TAB PO ONE (22:52)
--- NOTE | 2020-07-24 23:05 | Emergency Department Report ---
- General Chief Complaint: Wound/Laceration Stated Complaint: RT ELBOW INJURY Time Seen by Provider: 07/24/20 22:45 Source: patient Mode of arrival: Ambulatory Limitations: No Limitations - History of Present Illness Initial Comments: Patient 30-year-old male who presents for posterior right elbow laceration. Patient states he slipped striking his left elbow on shower tile causing a laceration. Bleeding was controlled via direct pressure self applied at home. There is no obvious deformity. pt states pain is 4/10. - Related Data Home Medications Medication Instructions Recorded Confirmed Last Taken Clomipramine HCl [Anafranil] 50 mg PO QHS 03/13/20 03/13/20 03/21/20 Fluvoxamine Maleate 200 mg PO BID 03/13/20 03/13/20 03/21/20 Paliperidone Palmitate [Invega 234 mg IM Q4W 03/13/20 03/13/20 Unknown Sustenna] diphenhydrAMINE [Benadryl CAP] 50 mg PO QHS 03/13/20 03/13/20 03/21/20 Previous Rx's Medication Instructions Recorded Last Taken Type traMADoL [Ultram 50 MG tab] 25 mg PO Q6HR PRN #10 tablet 03/22/20 Unknown Rx traMADoL [Ultram] 50 mg PO Q6HR PRN #12 tablet 07/24/20 Unknown Rx Allergies Allergy/AdvReac Type Severity Reaction Status Date / Time Penicillins AdvReac Rash Verified 03/13/20 18:07 ED Review of Systems ROS: Stated complaint: RT ELBOW INJURY Other details as noted in HPI Constitutional: denies: chills, fever Eyes: denies: eye pain, eye discharge, vision change ENT: denies: ear pain, throat pain Respiratory: denies: cough, shortness of breath, wheezing Cardiovascular: denies: chest pain, palpitations Endocrine: no symptoms reported Gastrointestinal: denies: abdominal pain, nausea, diarrhea Genitourinary: denies: urgency, dysuria Musculoskeletal: denies: back pain, joint swelling, arthralgia Skin: other (laceration right elbow ). denies: rash, lesions Neurological: denies: headache, weakness, paresthesias Psychiatric: denies: anxiety, depression Hematological/Lymphatic: as per HPI ED Past Medical Hx - Past Medical History Hx Hypertension: No Hx Psychiatric Treatment: Yes Hx HIV: No Additional medical history: Tourette's syndrome, schizophrenia, OCD - Social History Smoking Status: Never Smoker - Medications Home Medications: Home Medications Medication Instructions Recorded Confirmed Last Taken Type Clomipramine HCl [Anafranil] 50 mg PO QHS 03/13/20 03/13/20 03/21/20 History Fluvoxamine Maleate 200 mg PO BID 03/13/20 03/13/20 03/21/20 History Paliperidone Palmitate [Invega 234 mg IM Q4W 03/13/20 03/13/20 Unknown History Sustenna] diphenhydrAMINE [Benadryl CAP] 50 mg PO QHS 03/13/20 03/13/20 03/21/20 History traMADoL [Ultram 50 MG tab] 25 mg PO Q6HR PRN #10 tablet 03/22/20 Unknown Rx traMADoL [Ultram] 50 mg PO Q6HR PRN #12 tablet 07/24/20 Unknown Rx ED Physical Exam - General Limitations: No Limitations General appearance: alert, in no apparent distress - Head Head exam: Present: atraumatic, normocephalic - Eye Eye exam: Present: normal appearance, EOMI Pupils: Present: normal accommodation - ENT ENT exam: Present: mucous membranes moist - Neck Neck exam: Present: normal inspection, full ROM. Absent: tenderness - Respiratory Respiratory exam: Present: normal lung sounds bilaterally. Absent: respiratory distress, wheezes - Cardiovascular Cardiovascular Exam: Present: regular rate, normal rhythm, normal heart sounds. Absent: systolic murmur, diastolic murmur, rubs, gallop - GI/Abdominal GI/Abdominal exam: Present: soft, normal bowel sounds. Absent: distended, tenderness - Rectal Rectal exam: Present: deferred - Extremities Exam Extremities exam: Present: normal inspection, full ROM, normal capillary refill. Absent: tenderness, joint swelling - Expanded Upper Extremity Exam Right Elbow exam: Present: full ROM, laceration (2cm superficial posterior elbow ). Absent: tenderness, swelling, abrasion, ecchymosis, deformity, crepidus, dislocation, erythema, effusion, pain w/ pronation/supination, tenderness over radial head Forearm Wrist exam: Present: full ROM. Absent: tenderness Hand Wrist exam: Present: normal inspection, full ROM. Absent: tenderness Neuro motor exam: Present: wrist extension intact, thumb opposition intact, thumb IP flexion intact, thumb adduction intact, fingers 2-5 abduction intact Neurosensory exam: Present: 2-point discrimination, radial nerve intact Vascular: Present: normal capillary refill - Back Exam Back exam: Present: normal inspection, full ROM - Neurological Exam Neurological exam: Present: alert, oriented X3, CN II-XII intact - Expanded Neurological Exam Expanded Motor strength exam: RUE: 5, LUE: 5 Best Eye Response (Tiline): (4) open spontaneously Best Motor Response (Tiline): (6) obeys commands Best Verbal Response (Tiline): (5) oriented Tiline Total: 15 - Psychiatric Psychiatric exam: Present: normal affect, normal mood - Skin Skin exam: Present: warm, dry, normal color, other (laceration as above ). Absent: rash ED Course Vital Signs 07/24/20 21:57 Temperature 98.9 F Pulse Rate 90 Respiratory 16 Rate Blood Pressure 140/79 O2 Sat by Pulse 99 Oximetry - Laceration /Wound Repair Right Elbow Wound Location: upper extremity Wound Length (cm): 2 Wound's Depth, Shape: superficial Wound Explored: clean Irrigated w/ Saline (ccs): 40 Betadine Prep?: Yes Anesthesia: 1% Lidocaine Volume Anesthetic (ccs): 2 Wound Debrided: none required Wound Repaired With: sutures Suture Size/Type: 3:0, proline Number of Sutures: 5 (running) Sterile Dressing Applied?: Yes Progress: Right posterior elbow laceration 2 cm, no active bleeding, range of motion is intact, no crepitus no deformity no nerve, muscle, or tendon damage. Die Developer are equal no pain to supination or pronation. Site cleaned with Betadine solution, anesthesia with 1% lidocaine x2 cc. Wound irrigated with 40 cc sterile saline. Wound closed with 3-0 Prolene times 5 sutures running. Edges are well approximated, all bleeding is controlled. Patient tolerated procedure with minimal distress. Patient given wound care instructions including return to ED or primary care in 7 to 10 days for suture removal. Sterile dressing is applied. CMS remains intact. HOUSING LIAISON less than 3 seconds bilateral. Patient tolerated procedure with minimal distress ED Medical Decision Making - Medical Decision Making laceration repair , see procedure note, pt dc'd to home in stable condition at this time. Critical care attestation.: If time is entered above; I have spent that time in minutes in the direct care of this critically ill patient, excluding procedure time. ED Disposition Clinical Impression: Elbow laceration Qualifiers: Encounter type: initial encounter Laterality: right Qualified Code(s): S51.011A - Laceration without foreign body of right elbow, initial encounter Disposition: TO HOME OR SELFCARE Is pt being admited?: No Does the pt Need Aspirin: No Condition: Stable Instructions: Laceration Care, Adult Prescriptions: traMADoL [Ultram] 50 mg PO Q6HR PRN #12 tablet PRN Reason: Pain Referrals: PRIMARY CARE, [Primary Care Provider] - 3-5 Days Time of Disposition: 23:19
== END 2020-07-25 00:15 | disposition home or self-care (01) ==
LOC: ED 20:03
DX: S51.011A Laceration without foreign body of right elbow, initial encounter (principal); Z79.899 Other long term (current) drug therapy; Z88.0 Allergy status to penicillin; W01.0XXA Fall on same level from slipping, tripping and stumbling without subsequent striking against object, initial encounter; Y93.89 Activity, other specified; Y92.89 Other specified places as the place of occurrence of the external cause; Y99.8 Other external cause status
CPT/HCPCS: 90471; 90715

== ENCOUNTER 2020-07-30 12:02 | Emergency (ER) | payer MEDICAID ==
[2020-07-30 13:06] VITALS: BP 135/85
--- NOTE | 2020-07-30 13:48 | Emergency Department Report ---
Suture/Staple Removal - HPI Chief Complaint: Laceration/Recheck/Suture Stated Complaint: RT ELBOW RE STITCH Time Seen by Provider: 07/30/20 13:45 When Sutures or Vass Placed: 5-7 Days Ago Wound Location: Right elbow ED Review of Systems ROS: Stated complaint: RT ELBOW RE STITCH Other details as noted in HPI Comment: All other systems reviewed and negative ED Past Medical Hx - Past Medical History Previous Medical History?: Yes Hx Hypertension: No Hx Psychiatric Treatment: Yes Hx HIV: No Additional medical history: Tourette's syndrome, schizophrenia, OCD - Social History Smoking Status: Never Smoker - Medications Home Medications: Home Medications Medication Instructions Recorded Confirmed Last Taken Type Clomipramine HCl [Anafranil] 50 mg PO QHS 03/13/20 03/13/20 03/21/20 History Fluvoxamine Maleate 200 mg PO BID 03/13/20 03/13/20 03/21/20 History Paliperidone Palmitate [Invega 234 mg IM Q4W 03/13/20 03/13/20 Unknown History Sustenna] diphenhydrAMINE [Benadryl CAP] 50 mg PO QHS 03/13/20 03/13/20 03/21/20 History traMADoL [Ultram 50 MG tab] 25 mg PO Q6HR PRN #10 tablet 03/22/20 Unknown Rx traMADoL [Ultram] 50 mg PO Q6HR PRN #12 tablet 07/24/20 Unknown Rx Suture Removal Exam - Exam General: Vital signs noted. No distress. Alert and acting appropriately. Wound: Yes Wound Dehiscence (Mild dehiscence) Other Systems: All other systems reviewed and are unremarkable. ED Course Vital Signs 07/30/20 13:05 Temperature 98.6 F Pulse Rate 74 Respiratory 18 Rate Blood Pressure 135/85 [Right] O2 Sat by Pulse 100 Oximetry ED Recheck MDM - Differential Diagnosis Wound Recheck, Suture/Staple Removal - Medical Decision Making Patient had 1 continuous suture that needed to be pulled as three fourths of the wound had dehisced mildly. Provider was able to remove 1 suture and placed Steri-Strips. Instructed patient to continue with any medications that they have placed him on pain medication keep the wound clean and dry can apply triple antibiotics. Critical care attestation.: If time is entered above; I have spent that time in minutes in the direct care of this critically ill patient, excluding procedure time. ED Disposition Clinical Impression: Visit for suture removal Disposition: [id number] TO HOME OR SELFCARE Is pt being admited?: No Does the pt Need Aspirin: No Condition: Stable Instructions: Incision Care, Adult, [id number] Additional Instructions: Continue with pain medication you can use [id number] triple antibiotic ointment. Keep wound clean and dry.
== END 2020-07-30 13:51 | disposition home or self-care (01) ==
LOC: ED 12:02
DX: T81.30XD Disruption of wound, unspecified, subsequent encounter (principal); Z48.02 Encounter for removal of sutures; Z79.899 Other long term (current) drug therapy; Z88.0 Allergy status to penicillin; X58.XXXD Exposure to other specified factors, subsequent encounter
CPT/HCPCS: 99282